=== PATIENT | female | born 1980 | race Caucasian/White ===

== ENCOUNTER 2016-03-09 11:26 | Emergency (ER) | payer OTHER ==
[~2016-03-09 11:26] MED LIST: ABILIFY5 MG PO; ACETAMINOPHEN500 MG PO; ALBUTEROL HFA60 DOSE IN; COLACE100 MG PO; CREON6000 UNIT PO; DOCQLACE100 MG PO; FLAGYL500 MG PO; HYDROXYZINE HCL25 MG PO; HYOSCYAMINE0.125 M2 PO; LEVAQUIN500 MG PO; MELATONIN1 M1 PO; MIRALAX EQUIVAL17 GM PO; NAPROSYN250 MG PO; NICODERM C14 MG/24 H TOP; ONDANSETRON ODT4 MG PO; OXYCODONE/ACETA1 TA1 PO; PERCOCET1 TA1 PO; PRILOSEC20 MG PO; VICODIN EQUIVAL1 TAB PO; ZOFRAN ODT4 MG PO
--- NOTE | 2016-03-09 16:13 | DIAGNOSTIC IMAGING REPORT ---
PROCEDURE: CT ABD/PELVIS WITH CONTRAST CLINICAL INDICATION: Epigastric pain with ERCP 1 week ago and stent placement. Initial encounter. TECHNIQUE: 125 ml of Isovue 300 were injected intravenously and axial images were obtained of the entire abdomen and pelvis with sagittal and coronal reformations. COMPARISON: CT abdomen/pelvis 04/19/2015 FINDINGS: ABDOMEN: Lung base are clear. Heart size is normal. Cholecystectomy with interval placement of a pancreatic stent. Normal pancreas. Stable mild extra and intrahepatic ductal dilation. Liver, spleen, kidneys and abdominal aorta are normal. There is wall thickening of the ascending, descending and sigmoid colon which may be due to decompression versus colitis. No adjacent inflammatory changes. PELVIS: Normal appendix. Occasional sigmoid diverticula. IUD in satisfactory position. Normal bladder. There is no pelvic mass, free fluid or inflammatory changes. No suspicious osseous lesions IMPRESSION: 1. Wall thickening of the ascending, transverse and sigmoid colon which may represent spasm versus colitis. 2. Cholecystectomy with pancreatic stent. No evidence of pancreatitis 3. Occasional sigmoid diverticula 4. IUD in place 5. Results discussed with Dr. Stern All CT scans at this facility use dose modulation, iterative reconstruction, and/or weight-based dosing when appropriate to reduce radiation dose to as low as reasonably achievable.
--- NOTE | 2016-03-09 16:47 | ED ORDER SUMMARY ---
..... Patient: URIEL MITCHELL OrderSheet [facility] VisitID: [id number] [place] [address] 36y, F Registration Date/Time: 03/09/2016 ORDER SHEET Weight: 62.3 kg (stated) Allergies: Indomethacin, Reglan, Shellfish-derived Products GENERAL ORDERS: CBC w Diff Urgent (12:29 03/09/2016 Yamileth Aponte) (Ack 12:35 [facility] ER Tech1) (14:32 NHouse ER Tech1) CMP Urgent (12:29 03/09/2016 Yamileth Aponte) (Ack 12:35 NHouse ER Tech1) (14:32 NHouse ER Tech1) UA-Culture if indicated Urgent (12:29 03/09/2016 Yamileth Aponte) (Ack 12:35 [employer] ER Tech1) (14:31 GMarshall R.N.) Urine Urgent (12:29 03/09/2016 Yamileth Aponte) (Ack 12:35 [employer] ER Tech1) (14:31 GMarshall R.N.) Amylase Urgent (12:29 03/09/2016 Yamileth Aponte) (Ack 12:35 [employer] ER Tech1) (14:32 NHouse ER Tech1) Lipase Urgent (12:29 03/09/2016 Yamileth Aponte) (Ack 12:35 [employer] ER Tech1) (14:32 NHouse ER Tech1) Consult - GI (Dr. Santiago Winter) (13:08 03/09/2016 [employer] ER Tech1 verbal order read back to Yamileth Aponte) (13:09 [facility] ER Tech1) CT Abd/Pel w Cont (No) (8/0.8) Urgent (14:16 03/09/2016 Yamileth Aponte) (Ack 14:21 DEouse ER Tech1) (15:59 MCampbell) MEDICATION ORDERS: Promethazine IV 25 mg (HIGH ALERT MEDICATION, NOW) (12:28 03/09/2016 Yamileth Aponte) (13:03 HOShaughnessy R.N.) IV FLUIDS: IV NS : initial bolus none -, then 1000 mL/hr for X1 (NOW) (12:27 03/09/2016 Yamileth Aponte) (13:03 Sabino R.N.) Demerol IV 25 mg (HIGH ALERT MEDICATION, NOW) (12:29 03/09/2016 Yamileth Aponte) (13:14 HOSharoberto R.N.) Demerol IV 25 mg (HIGH ALERT MEDICATION, NOW) (14:16 03/09/2016 Yamileth Aponte) (14:43 Sabnio R.N.) Zofran IV 8 mg (NOW) (14:17 03/09/2016 Yamileth Aponte) (14:28 Sabino R.N.) ORDER SHEET NOTES: [Electronically signed by Jd Harris R.N. (17:04 03/09/2016)] [Electronically signed by Elías Stern Dr. (22:24 03/10/2016)] [Electronically locked/signed by Jd Harris R.N. (17:04 03/09/2016)]
--- NOTE | 2016-03-09 16:47 | ED CLINICAL REPORT ---
Clinical Report - Physicians/Mid Levels [facility] [address] [place] [address] 03/09/2016 11:28 Patient: URIEL MITCHELL Time Seen: 12:18; initial patient contact. Arrived- By private vehicle. Historian- patient. HISTORY OF PRESENT ILLNESS Chief Complaint: ABDOMINAL PAIN. At its maximum, severity described as moderate. When seen in the E.D., severity described as moderate. Modifying factors. Not worsened by anything. Not relieved by anything. It is described as "pain". No radiation. It is described as located in the right upper quadrant and epigastric area. This started about 1 week ago; Pain since ERCP last week and is still present. The patient has had nausea and vomiting. No loss of appetite or diarrhea. Similar symptoms previously: Many times. Recent medical care: The patient was seen recently in a clinic. REVIEW OF SYSTEMS No constipation, fever or chills. All systems otherwise negative, except as recorded above. PAST HISTORY Recent Travel. Leukocytosis. Abscess. Perirectal Abscess. Allergic Reaction. Constipation. Diverticulitis. Sick Contact. Abnormal Test. Abdominal Pain. Tendonitis. Pancreatitis. Gallstone(s). C-Diff. Insomnia. Dental Pain. Colitis. Vomiting. Diarrhea. Influenza. Pharyngitis. Asthma. Anxiety Reaction. Immunizations. --11:53 Jimena Galarza, R.N. Irritable Bowel Syndrome [RuleOut]. Substance Abuse [RuleOut]. Gastroenteritis [RuleOut]. --11:53 Jimena Galarza, R.N. ADDITIONAL SURGERIES: Breast Biopsy. Cholecystectomy. Colostomy. Endoscopy. Lump removed from left breast. Medications: Ondansetron Oral. Albuterol Sulfate HFA Inhalation. Melatonin. Omeprazole Oral. Docusate Calcium Oral. ClonazePAM Oral. Oxycodone-Acetaminophen Oral. Hycosamine. Allergies: Indomethacin. Definite Moderate(nausea, vomiting) Reglan. Definite Moderate(hives) (and shaking) Shellfish-derived Products. SOCIAL HISTORY Smoker - current status unknown. History of drug use: marijuana. No alcohol use. ADDITIONAL NOTES The nursing notes have been reviewed with agreement regarding the chief complaint, PMH and patient medications and allergies. PHYSICAL EXAM Vital Signs: 03/09/2016 11:55 BP: 106/63. HR: 88. RR: 18. O2 saturation: 99%. Temp: 97.5 F. Pain level now: 08/06. Have been reviewed as normal. Appearance: Alert. Oriented X3. No acute distress. Eyes: No scleral icterus or pale conjunctivae. ENT: Pharynx normal. CVS: Normal heart rate and rhythm. Heart sounds normal. Respiratory: No respiratory distress. Breath sounds normal. Abdomen: Soft. Moderate tenderness in the upper abdomen. No guarding, rebound tenderness or Arias's sign present. Bowel sounds normal. No organomegaly. No mass. Skin: Skin warm and dry. Normal skin color. No rash. Normal skin turgor. Extremities: No lower extremity edema. Neuro: Oriented X 3. LABS, X-RAYS, AND EKG CT Abdomen - Pelvis: 1. Wall thickening of the ascending, transverse and sigmoid colon which may represent spasm versus colitis. 2. Cholecystectomy with pancreatic stent. No evidence of pancreatitis 3. Occasional sigmoid diverticula 4. IUD in [address]. Abdomen - pelvic CT performed with IV contrast. The study was interpreted by the radiologist and discussed with the radiologist. Laboratory Tests: UA-Culture if indicated: (LILIA: 03/09/2016 13:45) ( [facility] [place] 03/09/2016 14:07) IP Test Result Flag Units (Reference) URINE COLOR YELLOW URINE APPEARANCE CLEAR URINE GLUCOSE NEGATIVE (NEGATIVE) URINE BILIRUBIN NEGATIVE (NEGATIVE) URINE KETONE NEGATIVE (NEGATIVE) URINE SPECIFIC GRAVITY 1.020 (1.010-1.030) URINE PH 6.5 (5.0-8.0) URINE PROTEIN NEGATIVE (NEGATIVE) URINE UROBILINOGEN 0.2 EU/dL (0.2-1.0) URINE NITRITE NEGATIVE (NEGATIVE) URINE BLOOD NEGATIVE (NEGATIVE) URINE LEUK ESTERASE NEGATIVE (NEGATIVE) Urine: (LILIA: 03/09/2016 13:45) ( [facility] [place] 03/09/2016 14:07) Final results Test Result Flag Units (Reference) URINE NEGATIVE CBC w Diff: (LILIA: 03/09/2016 12:52) ( [facility] [place] 03/09/2016 13:22) Final results Test Result Flag Units (Reference) WHITE BLOOD COUNT 6.8 K/uL (4.5-11.5) RED BLOOD COUNT 4.88 M/uL (4.00-5.20) HEMOGLOBIN 14.3 gm/dL (12.0-16.0) HEMATOCRIT 43.7 % (36.0-46.0) MEAN CELL VOLUME 90 fL (80-100) MEAN CORPUSCULAR HGB 29 pg (26-34) MEAN CORPUSCULAR HGB CONC 33 g/dL (31-37) RED CELL DISTRIBUTION WIDTH 12.5 % (11.6-14.8) PLATELET COUNT 195 K/uL (150-400) LYMPH % 27.8 % (25-40) MONO % 2.5 L % (3-14) GRANULOCYTE % 69.7 (53-90) CMP: (LILIA: 03/09/2016 12:52) ( MsgRcvd 03/09/2016 13:29) Final results Test Result Flag Units (Reference) GLUCOSE 84 mg/dL (70-110) BUN 8 mg/dL (7-18) CREATININE 0.8 mg/dL (0.6-1.3) Estimated GFR >60 mL/min Estimated GFR- >60 mL/min Note: Persistent reduction over 3 months in eGFR<60 mL/min/1.73 m2 defines CKD. Patients with eGFR values>=60 mL/min/1.73 m2 may also have CKD if evidence ofpersistent proteinuria. Additional information may be foundat www.kidney.org. SODIUM 140 mmol/L (136-145) POTASSIUM 4.2 mmol/L (3.5-5.1) CHLORIDE 106 mmol/L (98-107) CARBON DIOXIDE 28 mmol/L (21-32) CALCIUM 8.9 mg/dL (8.5-10.1) TOTAL PROTEIN 7.2 g/dL (6.4-8.2) ALBUMIN 4.0 g/dL (3.3-5.0) BILIRUBIN, TOTAL 0.6 mg/dL (0.0-1.0) ALKALINE PHOSPHATASE 51 U/L (46-116) AST (SGOT) 15 U/L (15-37) ALT (SGPT) 23 U/L (12-78) LIPASE 118 U/L (73-393) AMYLASE 32 U/L (25-115) . PROGRESS AND PROCEDURES Course of Care: 16:47 03/09/16. Went in room to discuss results, pt sound asleep. When awake, no signs of pain or distress. 03/09/2016 14:44 BP: 99/53. HR: 71. RR: 16. O2 saturation: 98%. Pain level now: 06/06. Vital Signs: have been reviewed. Hypotensive. Heart rate normal. Respiratory rate normal. Oxygen saturation normal. Discussed case with patient's primary care provider, (call returned 13:17 Dr. Winter recommended labs and CT w/ contrast). Disposition: Discharged home in good and improved condition. Condition: good. CLINICAL IMPRESSION Chronic epigastric abdominal pain of unknown cause. INSTRUCTIONS Your Current Medications: CONTINUE TAKING THE FOLLOWING MEDICATIONS: Albuterol Sulfate HFA Inhalation. ClonazePAM Oral. Docusate Calcium Oral. Hycosamine*. Melatonin*. Omeprazole Oral. Ondansetron Oral. Oxycodone-Acetaminophen Oral. Follow-up: Follow up with your doctor in about two days. Call for an appointment. Screening today revealed the patient's blood pressure to be in the normal range. (Electronically signed by Elías Stern Dr. 03/10/2016 22:24)
--- NOTE | 2016-03-09 16:47 | ED NURSING NOTES ---
Clinical Report - Nurses [facility] [place] [address] 03/09/2016 11:28 Patient: URIEL MITCHELL TRIAGE Triage time 11:49. Acuity: LEVEL 3. Chief Complaint: ABDOMINAL PAIN and (pt had ERCP with stent, done 1 week ago, Dr Ingram sent pt here to ED for labs and x rays). Alert. --11:54 Jimena Galarza R.N. 11:55 03/09/16. BP: 106/63. HR: 88. RR: 18. O2 saturation: 99%. Temp: 97.5 F. Pain level now: 08/06. --11:55 Jiemna Galarza R.N. Weight: 62.3 kg stated. Height/Length: 68 inches Per Patient. BMI: 20.9. --11:48 Jimena Galarza R.Chloé. Medications Hycosamine. --11:47 Jimena Galarza R.Chloé. ClonazePAM Oral. Oxycodone-Acetaminophen Oral. --11:47 Jimena Galarza R.N. Docusate Calcium Oral. --11:47 Jimena Galarza R.N. Omeprazole Oral. --11:48 Jimena Galarza R.N. Melatonin. --11:48 Jimena Galarza R.N. Albuterol Sulfate HFA Inhalation. --11:48 Jimena Galarza R.N. Ondansetron Oral. --11:48 Jimena Galarza R.N. Allergies Indomethacin. Definite Moderate(nausea, vomiting) Reglan. Definite Moderate(hives) (and shaking) Shellfish-derived Products. --11:49 Jimena Galarza R.N. History Arrived by private vehicle, and accompanied by daughter. Primary physician (Monique Ingram for stent). Historian not patient. Onset. (1 week ago). SURGERY HX: ( ERCP). SOCIAL HX: Smoker- current status unknown. History of drug use: marijuana. No alcohol use. The patient was not exposed to MRSA. SELF HARM ASSESSMENT: A self harm assessment was performed. The patient answered "no" to the question "Do you have thoughts of harming or killing yourself?". FALL RISK ASSESSMENT: Fall risk assessment completed. No fall risk identified. NUTRITIONAL RISK ASSESSMENT: The nutritional risk assessment revealed no deficiencies. FUNCTIONAL ASSESSMENT: Functional assessment: no impairments noted. --11:54 Jimena Galarza R.N. PROBLEMS: Recent Travel. Leukocytosis. Abscess. Perirectal Abscess. Allergic Reaction. Constipation. Diverticulitis. Sick Contact. Abnormal Test. Abdominal Pain. Tendonitis. Pancreatitis. Gallstone(s). C-Diff. Insomnia. Dental Pain. Colitis. Vomiting. Diarrhea. Influenza. Pharyngitis. Asthma. Anxiety Reaction. Immunizations. --11:53 Jimena Galarza R.N. Irritable Bowel Syndrome [RuleOut]. Substance Abuse [RuleOut]. Gastroenteritis [RuleOut]. --11:53 Jimena Galarza R.N. ADDITIONAL SURGERIES: Breast Biopsy. Cholecystectomy. Colostomy. Endoscopy. Lump removed from left breast. --11:53 Jimena Galarza R.N. Interventions ID band on patient. To room. --11:54 Jimena Galarza R.N. PHYSICAL ASSESSMENT 11:54 03/09/16. GENERAL / NEURO / PSYCH: Alert. Oriented X 4. RESPIRATORY: Respirations not labored. --11:54 Jimena Galarza R.N. NURSING PROGRESS NOTES 11:55 03/09/16. Patient gowned. Head of bed elevated. Patient identifiers checked. Call light placed in reach. Bed placed in lowest position. Patient ready for evaluation- chart flagged. --11:55 Jimena Galarza R.N. ( Pt unable to eat solid foods, vomits when tries to eat, so stays on liquids only). --11:56 Jimena Galarza R.N. Care transferred and report given (to Jd). --12:15 Jimena Galarza R.N. 13:02 03/09/2016 Site #1 started via IV in the left forearm with an 20g angiocath; two attempts. Blood drawn: rainbow set. Labeled in the presence of the patient and sent to the lab. Saline lock flushed with 10 mL saline. --13:02 Jd Harris R.N. 13:03 03/09/2016 Started IV Fluids IV NS (Saline); bolus of 1000 mL wide open via site #1. Allergies verified and confirmed 5 rights. IV patency established. IV site checked: no pain, redness, or swelling. IV flushed thoroughly pre- and post-medication administration. --13:03 Jd Harris R.N. 13:03 03/09/2016 Started 25 mg of PROMETHAZINE IVPB in bag #1 100 mL; over 20 minute(s) via site #1; Allergies verified, confirmed 5 rights and sedative warning given to the patient. IV patency established. IV site checked: no pain, redness, or swelling. IV flushed thoroughly pre- and post-medication administration. --13:03 Jd Harris R.N. 13:13 03/09/16. BP: 107/60. HR: 68. RR: 16. O2 saturation: 99%. --13:13 Jd Harris R.N. Reassessment after fluids administered and medication administered. She is calm and resting quietly. Overall patient status is improved- she states feels better. --13:13 Jd Harris R.N. 13:14 03/09/2016 Demerol (Meperidine HCl) IVP 25 mg given over 2 minute(s) via site #1. Allergies verified and confirmed 5 rights. IV patency established. IV site checked: no pain, redness, or swelling. IV flushed thoroughly pre- and post-medication administration. IVP given by RN. --13:14 Jd Harris R.N. 14:28 03/09/2016 Zofran (Ondansetron HCl) IVP 8 mg given over 2 minute(s) via site #1. Allergies verified and confirmed 5 rights. IV patency established. IV site checked: no pain, redness, or swelling. IV flushed thoroughly pre- and post-medication administration. IVP given by RN. --14:28 Jd Harris R.N. <<STRICKEN ENTRY-- 14:42 03/09/2016 Zofran (Ondansetron HCl) IVP 8 mg given over 2 minute(s) via site #1. Allergies verified and confirmed 5 rights. IV patency established. IV site checked: no pain, redness, or swelling. IV flushed thoroughly pre- and post-medication administration. IVP given by RN. --14:42 Jd Harris R.N. --END STRIKE>> Correction. --17:03 Jd Harris R.N. 14:43 03/09/2016 Demerol (Meperidine HCl) IVP 25 mg given over 2 minute(s) via site #1. Allergies verified and confirmed 5 rights. IV patency established. IV site checked: no pain, redness, or swelling. IV flushed thoroughly pre- and post-medication administration. IVP given by RN. --14:43 Jd Harris R.N. 14:44 03/09/16. BP: 99/53. HR: 71. RR: 16. O2 saturation: 98%. Pain level now: 06/06. --14:44 Jd Harris R.N. The patient is calm. Overall patient status is improved- she states feels better. GI / : The patient reports abdominal pain. --14:44 Jd Harris R.N. 14:42 03/09/2016 Zofran (Ondansetron HCl) IVP 8 mg given over 2 minute(s) via site #1. (NOT ADMINISTERED). --17:03 Jd Harris R.N. DISPOSITION / DISCHARGE Condition at departure: improved. The goals identified in the patient's plan of care were met. No learning barriers present. Discharge instructions provided and reviewed with the patient. Reviewed medication(s) side effects, precautions, dosing and course information. Prescription(s) given to the patient. The patient was discharged home and accompanied by family. She left the Emergency Department ambulatory and via private vehicle. Family member driving. FALL RISK ASSESSMENT: Fall risk assessment completed. No fall risk identified. --17:02 Jd Harris R.N. 17:01 03/09/16. BP: 100/52 taken on the right arm, via an automated monitor, while lying. HR: 67. RR: 16. O2 saturation: 100%. Temp: 98.2 F (oral). Pain level now: 0/10. --17:02 Jd Harris R.N. Departure time: 1702 PM. --17:02 Jd Harris R.N. 17:02 03/09/2016 IV Fluids IV NS Discontinued: bag #1 completed upon discharge. Total amount infused: 1000 mL. IV patency established. IV site checked: no pain, redness, or swelling. IV flushed thoroughly. --17:02 Jd Harris R.N. Locked/Released at 03/09/2016 17:04 by Jd Harris R.N.
--- NOTE | 2016-03-09 16:47 | ED ORDER SUMMARY ---
..... Patient: URIEL MITCHELL OrderSheet [facility] VisitID: [id number] [place] [address] 36y, F Registration Date/Time: 03/09/2016 ORDER SHEET Weight: 62.3 kg (stated) Allergies: Indomethacin, Reglan, Shellfish-derived Products GENERAL ORDERS: CBC w Diff Urgent (12:29 03/09/2016 Yamileth Aponte) (Ack 12:35 [employer] ER Tech1) (14:32 [facility]ouse ER Tech1) CMP Urgent (12:29 03/09/2016 Yamileth Aponte) (Ack 12:35 [facility] ER Tech1) (14:32 NHouse ER Tech1) UA-Culture if indicated Urgent (12:29 03/09/2016 Yamileth Aponte) (Ack 12:35 [employer] ER Tech1) (14:31 GMarshall R.N.) Urine Urgent (12:29 03/09/2016 Yamileth Aponte) (Ack 12:35 [employer] ER Tech1) (14:31 GMarshall R.N.) Amylase Urgent (12:29 03/09/2016 Yamileth Aponte) (Ack 12:35 [employer] ER Tech1) (14:32 NH[facility] ER Tech1) Lipase Urgent (12:29 03/09/2016 Yamileth Aponte) (Ack 12:35 [employer] ER Tech1) (14:32 NHouse ER Tech1) Consult - GI (Dr. Santiago Winter) (13:08 03/09/2016 [employer] ER Tech1 verbal order read back to Yamileth Aponte) (13:09 [employer] ER Tech1) CT Abd/Pel w Cont (No) (8/0.8) Urgent (14:16 03/09/2016 Yamileth Aponte) (Ack 14:21 [facility] ER Tech1) (15:59 MCampbell) MEDICATION ORDERS: Promethazine IV 25 mg (HIGH ALERT MEDICATION, NOW) (12:28 03/09/2016 Yamileth Aponte) (13:03 HOShaughnessy R.N.) IV FLUIDS: IV NS : initial bolus none -, then 1000 mL/hr for X1 (NOW) (12:27 03/09/2016 Yamileth Aponte) (13:03 Sabino R.N.) Demerol IV 25 mg (HIGH ALERT MEDICATION, NOW) (12:29 03/09/2016 Yamileth Aponte) (13:14 HOSharoberto R.N.) Demerol IV 25 mg (HIGH ALERT MEDICATION, NOW) (14:16 03/09/2016 Yamileth Aponte) (14:43 Sabino R.N.) Zofran IV 8 mg (NOW) (14:17 03/09/2016 Yamileth Aponte) (14:28 Sabino R.N.) ORDER SHEET NOTES: [Electronically signed by Jd Harris R.N. (17:04 03/09/2016)] [Electronically signed by Elías Stern Dr. (22:24 03/10/2016)] [Electronically locked/signed by Jd Harris R.N. (17:04 03/09/2016)]
--- NOTE | 2016-03-10 22:25 | ED MAR SUMMARY ---
..... Medication Administration Record [facility] [address] [place] [address] Patient: URIEL MITCHELL Visit ID: [id number] 36y, F Weight: 62.3 kg Height/Length: 68 in BMI: 20.9 ALLERGIES: Indomethacin, Reglan, Shellfish-derived Products Start 13:03 03/09/2016 Jd Harris R.N., Stop 17:02 03/09/2016 Jd Harris R.N. Medication Administered: IV NS (SALINE), Dose: IV Fluids, Bolus: 1000 mL wide open, Site: #1 left forearm. Medication Ordered: IV NS : initial bolus none -, then 1000 mL/hr for X1 (NOW). Start 13:03 03/09/2016 Jd Harris R.N. Medication Administered: PROMETHAZINE [IVPB], Dose: 25 mg IVPB over 20 minute(s), Dispensed: 100 mL bag, Site: #1 left forearm. Medication Ordered: Promethazine IV 25 mg (HIGH ALERT MEDICATION, NOW). Given 13:14 03/09/2016 Jd Harris R.N. Medication Administered: DEMEROL [IVP] (MEPERIDINE HCL), Dose: 25 mg IVP over 2 minute(s), Site: #1 left forearm. Medication Ordered: Demerol IV 25 mg (HIGH ALERT MEDICATION, NOW). Given 14:28 03/09/2016 Jd Harris R.N. Medication Administered: ZOFRAN [IVP] (ONDANSETRON HCL), Dose: 8 mg IVP over 2 minute(s), Site: #1 left forearm. Medication Ordered: Zofran IV 8 mg (NOW). Given 14:42 03/09/2016 Jd Harris R.N. Medication Administered: ZOFRAN [IVP] (ONDANSETRON HCL), Dose: 8 mg IVP over 2 minute(s), Site: #1 left forearm. Medication Ordered: Zofran IV 8 mg (NOW). Given 14:43 03/09/2016 Jd Harris R.N. Medication Administered: DEMEROL [IVP] (MEPERIDINE HCL), Dose: 25 mg IVP over 2 minute(s), Site: #1 left forearm. Medication Ordered: Demerol IV 25 mg (HIGH ALERT MEDICATION, NOW).
--- NOTE | 2016-03-10 22:25 | ED MAR SUMMARY ---
..... Medication Administration Record [facility] [address] [place] [address] Patient: URIEL MITCHELL Visit ID: [id number] 36y, F Weight: 62.3 kg Height/Length: 68 in BMI: 20.9 ALLERGIES: Indomethacin, Reglan, Shellfish-derived Products Start 13:03 03/09/2016 Jd Harris R.N., Stop 17:02 03/09/2016 Jd Harris R.N. Medication Administered: IV NS (SALINE), Dose: IV Fluids, Bolus: 1000 mL wide open, Site: #1 left forearm. Medication Ordered: IV NS : initial bolus none -, then 1000 mL/hr for X1 (NOW). Start 13:03 03/09/2016 Jd Harris R.N. Medication Administered: PROMETHAZINE [IVPB], Dose: 25 mg IVPB over 20 minute(s), Dispensed: 100 mL bag, Site: #1 left forearm. Medication Ordered: Promethazine IV 25 mg (HIGH ALERT MEDICATION, NOW). Given 13:14 03/09/2016 Jd Harris R.N. Medication Administered: DEMEROL [IVP] (MEPERIDINE HCL), Dose: 25 mg IVP over 2 minute(s), Site: #1 left forearm. Medication Ordered: Demerol IV 25 mg (HIGH ALERT MEDICATION, NOW). Given 14:28 03/09/2016 Jd Harris R.N. Medication Administered: ZOFRAN [IVP] (ONDANSETRON HCL), Dose: 8 mg IVP over 2 minute(s), Site: #1 left forearm. Medication Ordered: Zofran IV 8 mg (NOW). Given 14:42 03/09/2016 Jd Harris R.N. Medication Administered: ZOFRAN [IVP] (ONDANSETRON HCL), Dose: 8 mg IVP over 2 minute(s), Site: #1 left forearm. Medication Ordered: Zofran IV 8 mg (NOW). Given 14:43 03/09/2016 Jd Harris R.N. Medication Administered: DEMEROL [IVP] (MEPERIDINE HCL), Dose: 25 mg IVP over 2 minute(s), Site: #1 left forearm. Medication Ordered: Demerol IV 25 mg (HIGH ALERT MEDICATION, NOW).
--- NOTE | 2016-03-10 22:25 | ED MED RECONCILIATION SUMMARY ---
Patient: URIEL MITCHELL Medication Reconciliation Report [facility] VisitID: [id number] [address] [place] [address] 36y, F Registration Date/Time: 03/09/2016 Weight: 62.3 kg Height/Length: 68 in. BMI: 20.9 ALLERGIES: Indomethacin, Reglan, Shellfish-derived Products The patient's Home Medications are listed below: CONTINUE TAKING THE FOLLOWING MEDICATIONS: Albuterol Sulfate HFA Inhalation ClonazePAM Oral Docusate Calcium Oral Hycosamine Melatonin Omeprazole Oral Ondansetron Oral Oxycodone-Acetaminophen Oral The source(s) of the original Home Medication information: Not obtained. The following Medications were given to the patient in the Emergency Department: IV NS IV Fluids bolus 1000 mL wide open, administered: 03/09/2016 1:03:00 PM PROMETHAZINE [IVPB] IVPB bolus 0, then 25 mg, administered: 03/09/2016 1:03:00 PM Demerol [IVP] IVP 25 mg, administered: 03/09/2016 1:14:00 PM Zofran [IVP] IVP 8 mg, administered: 03/09/2016 2:28:00 PM Zofran [IVP] IVP 8 mg, administered: 03/09/2016 2:42:00 PM Demerol [IVP] IVP 25 mg, administered: 03/09/2016 2:43:00 PM The following Medications were prescribed to the patient: None.
--- NOTE | 2016-03-10 22:25 | ED DISCHARGE INSTRUCTIONS ---
Patient: URIEL MITCHELL General Instructions [facility] VisitID: [id number] [place] [address] 36y, F Registration Date/Time: 03/09/2016 Chronic epigastric abdominal pain of unknown cause. INSTRUCTIONS Your Current Medications: CONTINUE TAKING THE FOLLOWING MEDICATIONS: Albuterol Sulfate HFA Inhalation. ClonazePAM Oral. Docusate Calcium Oral. Hycosamine*. Melatonin*. Omeprazole Oral. Ondansetron Oral. Oxycodone-Acetaminophen Oral. Follow-up: Follow up with your doctor in about two days. Call for an appointment. Screening today revealed the patient's blood pressure to be in the normal range. ADDITIONAL INFORMATION Abdominal Pain, Unknown Cause (Female) The exact cause of your abdominal (stomach) pain is not certain. This does not mean that this is something to worry about, or the right tests were not done. Everyone likes to know the exact cause of the problem, but sometimes with abdominal pain, there is no clear-cut cause, and this could be a good thing. The good news is that your symptoms can be treated, and you will feel better. Your condition does not seem serious now; however, sometimes the signs of a serious problem may take more time to appear. For this reason,it is important for you to watch for any new symptoms, problems,or worsening of your condition. Over the next few days, the abdominal pain may come and go, or be continuous. Other common symptoms can include nausea and vomiting. Sometimes it can be difficult to tell if you feel nauseous, you may just feel bad and not associate that feeling with nausea. Constipation, diarrhea, and a fever may go along with the pain. The pain may continue even if treated correctly over the following days. Depending on how things go, sometimes the cause can become clear and may require further or different treatment. Additional evaluations, medications, or tests may be needed. Home care Your health care provider may prescribe medications for pain, symptoms, or an infection. Follow the health care provider's instructions for taking these medications. General care Rest until your next exam. No strenuous activities. Try to find positions that ease discomfort. A small pillow placed on the abdomen may help relieve pain. Something warm on your abdomen (such as a heating pad) may help, but be careful not to burn yourself. Diet Do not force yourself to eat, especially if having cramps, vomiting, or diarrhea. Water is important so you do not get dehydrated. Soup may also be good. Sports drinks may also help, especially if they are not too acidic. Make sure you don't drink sugary drinks as this can make things worse. Take liquids in small amounts. Do not guzzle them. Caffeine sometimes makes the pain and cramping worse. Avoid dairy products if you have vomiting or diarrhea. Don't eat large amounts at a time. Wait a few minutes between bites. Eat a diet low in fiber (called a low-residue diet). Foods allowed include refined breads, white rice, fruit and vegetable juices without pulp, tender meats. These foods will pass more easily through the intestine. Avoid whole-grain foods, whole fruits and vegetables, meats, seeds and nuts, fried or fatty foods, dairy, alcohol and spicy foods until your symptoms go away. Follow-up care Follow up with your health care provider as instructed, or if your pain does not begin to improve in the next 24 hours. When to seek medical care Seek prompt medical care if any of the following occur: Pain gets worse or moves to the right lower abdomen New or worsening vomiting or diarrhea Swelling of the abdomen Unable to pass stool for more than three days Fever of 100.4F (38C) or higher, or as directed by your healthcare provider. Blood in vomit or bowel movements (dark red or black color) Jaundice (yellow color of eyes and skin) Weakness, dizziness Chest, arm, back, neck or jaw pain Unexpected vaginal bleeding or missed period Call 911 Call emergency services if any of the following occur: Trouble breathing Confusion Fainting or loss of consciousness Rapid heart rate Seizure You have been given the following additional information: Abdominal Pain, Unknown Cause, (Female) (Electronically signed by Elías Stern Dr. 03/10/2016 22:24)
--- NOTE | 2016-03-10 22:25 | ED MED RECONCILIATION SUMMARY ---
Patient: URIEL MITCHELL Medication Reconciliation Report Merged With [facility] VisitID: [id number] [address] [place] [address] 36y, F Registration Date/Time: 03/09/2016 Weight: 62.3 kg Height/Length: 68 in. BMI: 20.9 ALLERGIES: Indomethacin, Reglan, Shellfish-derived Products The patient's Home Medications are listed below: CONTINUE TAKING THE FOLLOWING MEDICATIONS: Albuterol Sulfate HFA Inhalation ClonazePAM Oral Docusate Calcium Oral Hycosamine Melatonin Omeprazole Oral Ondansetron Oral Oxycodone-Acetaminophen Oral The source(s) of the original Home Medication information: Not obtained. The following Medications were given to the patient in the Emergency Department: IV NS IV Fluids bolus 1000 mL wide open, administered: 03/09/2016 1:03:00 PM PROMETHAZINE [IVPB] IVPB bolus 0, then 25 mg, administered: 03/09/2016 1:03:00 PM Demerol [IVP] IVP 25 mg, administered: 03/09/2016 1:14:00 PM Zofran [IVP] IVP 8 mg, administered: 03/09/2016 2:28:00 PM Zofran [IVP] IVP 8 mg, administered: 03/09/2016 2:42:00 PM Demerol [IVP] IVP 25 mg, administered: 03/09/2016 2:43:00 PM The following Medications were prescribed to the patient: None.
== END 2016-03-09 17:03 | disposition home or self-care (01) ==
LOC: ED SRH 11:26
DX: R10.13 Epigastric pain (principal); G89.29 Other chronic pain; J45.909 Unspecified asthma, uncomplicated; Z79.52 Long term (current) use of systemic steroids; Z79.899 Other long term (current) drug therapy; Z88.6 Allergy status to analgesic agent; Z91.013 Allergy to seafood; Z88.8 Allergy status to other drugs, medicaments and biological substances
CPT/HCPCS: 90004; 90100; 92235; 92530; 93070; 95059

== ENCOUNTER 2016-06-13 12:58 | Outpatient (CLI) | payer OTHER ==
--- NOTE | 2016-06-13 14:16 | DIAGNOSTIC IMAGING REPORT ---
PROCEDURE: MG BILATERAL DIAGNOSTIC W/CAD INDICATION: Palpable area upper outer left breast. History of benign left lumpectomy. Baseline mammogram. No family history. TECHNIQUE: CC and MLO digital views of each breast with true-lateral digital view of the left breast. In addition, spot compression CC and MLO views were obtained of the upper outer left breast (region of clinical concern). Finally, high-resolution left breast ultrasound was performed (18 mHz) comparison images of the right breast (over the horizon targeting supervisor CB). COMPARISON: None. FINDINGS: MAMMOGRAM: Computer-aided detection applied. Dense parenchymal pattern. No evidence of mass or suspicious calcification. BREAST ULTRASOUND: Heterogeneous breast parenchyma with similar findings in the right breast. There are two small cysts in the upper outer left breast (7 mm, 8 mm) which accounts for the palpable area. There is no evidence of underlying mass in this region. There are [id number] adjacent ovoid hypoechoic areas in the left axillary region compatible with a normal intramammary lymph (7 mm, 7 mm). IMPRESSION: 1. Negative mammogram. 2. There are two small 7 mm 8 mm cysts in the upper outer left breast which correlate with the palpable area. 3. There are [id number]-[id number] adjacent hypoechoic nodules in the left axilla consistent with normal intramammary lymph nodes. 4. While there is no evidence of underlying abnormality, early follow-up left mammogram and left breast ultrasound in 6 months is recommended to confirm stability. 5. Findings discussed with the patient. RESULT CODE: 3- Probably benign findings - initial short-interval follow-up suggested. A. A negative report should not delay biopsy if a dominant or clinically suspicious mass is present. 10-15% of cancers are not identified by x-ray. B. A negative report may reinforce clinical impression. C. Adenosis and dense breasts may obscure an underlying neoplasm. D. False positive reports average 6-10%. E.. A yearly screening mammogram is recommended. A reminder letter will be scheduled.
--- NOTE | 2016-06-13 14:16 | DIAGNOSTIC IMAGING REPORT ---
PROCEDURE: MG BILATERAL DIAGNOSTIC W/CAD INDICATION: Palpable area upper outer left breast. History of benign left lumpectomy. Baseline mammogram. No family history. TECHNIQUE: CC and MLO digital views of each breast with true-lateral digital view of the left breast. In addition, spot compression CC and MLO views were obtained of the upper outer left breast (region of clinical concern). Finally, high-resolution left breast ultrasound was performed (18 mHz) comparison images of the right breast (physician/ophthalmologist CB). COMPARISON: None. FINDINGS: MAMMOGRAM: Computer-aided detection applied. Dense parenchymal pattern. No evidence of mass or suspicious calcification. BREAST ULTRASOUND: Heterogeneous breast parenchyma with similar findings in the right breast. There are two small cysts in the upper outer left breast (7 mm, 8 mm) which accounts for the palpable area. There is no evidence of underlying mass in this region. There are [id number] adjacent ovoid hypoechoic areas in the left axillary region compatible with a normal intramammary lymph (7 mm, 7 mm). IMPRESSION: 1. Negative mammogram. 2. There are two small 7 mm 8 mm cysts in the upper outer left breast which correlate with the palpable area. 3. There are hdk-[id number]-lwwtn adjacent hypoechoic nodules in the left axilla consistent with normal intramammary lymph nodes. 4. While there is no evidence of underlying abnormality, early follow-up left mammogram and left breast ultrasound in 6 months is recommended to confirm stability. 5. Findings discussed with the patient. RESULT CODE: 3- Probably benign findings - initial short-interval follow-up suggested. A. A negative report should not delay biopsy if a dominant or clinically suspicious mass is present. 10-15% of cancers are not identified by x-ray. B. A negative report may reinforce clinical impression. C. Adenosis and dense breasts may obscure an underlying neoplasm. D. False positive reports average 6-10%. E.. A yearly screening mammogram is recommended. A reminder letter will be scheduled.
--- NOTE | 2016-06-13 14:16 | DIAGNOSTIC IMAGING REPORT ---
PROCEDURE: MG BILATERAL DIAGNOSTIC W/CAD INDICATION: Palpable area upper outer left breast. History of benign left lumpectomy. Baseline mammogram. No family history. TECHNIQUE: CC and MLO digital views of each breast with true-lateral digital view of the left breast. In addition, spot compression CC and MLO views were obtained of the upper outer left breast (region of clinical concern). Finally, high-resolution left breast ultrasound was performed (18 mHz) comparison images of the right breast (commercial real estate associate CB). COMPARISON: None. FINDINGS: MAMMOGRAM: Computer-aided detection applied. Dense parenchymal pattern. No evidence of mass or suspicious calcification. BREAST ULTRASOUND: Heterogeneous breast parenchyma with similar findings in the right breast. There are two small cysts in the upper outer left breast (7 mm, 8 mm) which accounts for the palpable area. There is no evidence of underlying mass in this region. There are jfh-[id number]-aiegf adjacent ovoid hypoechoic areas in the left axillary region compatible with a normal intramammary lymph (7 mm, 7 mm). IMPRESSION: 1. Negative mammogram. 2. There are two small 7 mm 8 mm cysts in the upper outer left breast which correlate with the palpable area. 3. There are srv-nc-[id number] adjacent hypoechoic nodules in the left axilla consistent with normal intramammary lymph nodes. 4. While there is no evidence of underlying abnormality, early follow-up left mammogram and left breast ultrasound in 6 months is recommended to confirm stability. 5. Findings discussed with the patient. RESULT CODE: 3- Probably benign findings - initial short-interval follow-up suggested. A. A negative report should not delay biopsy if a dominant or clinically suspicious mass is present. 10-15% of cancers are not identified by x-ray. B. A negative report may reinforce clinical impression. C. Adenosis and dense breasts may obscure an underlying neoplasm. D. False positive reports average 6-10%. E.. A yearly screening mammogram is recommended. A reminder letter will be scheduled.
--- NOTE | 2016-06-13 14:16 | DIAGNOSTIC IMAGING REPORT ---
PROCEDURE: MG BILATERAL DIAGNOSTIC W/CAD INDICATION: Palpable area upper outer left breast. History of benign left lumpectomy. Baseline mammogram. No family history. TECHNIQUE: CC and MLO digital views of each breast with true-lateral digital view of the left breast. In addition, spot compression CC and MLO views were obtained of the upper outer left breast (region of clinical concern). Finally, high-resolution left breast ultrasound was performed (18 mHz) comparison images of the right breast (family sociologist CB). COMPARISON: None. FINDINGS: MAMMOGRAM: Computer-aided detection applied. Dense parenchymal pattern. No evidence of mass or suspicious calcification. BREAST ULTRASOUND: Heterogeneous breast parenchyma with similar findings in the right breast. There are two small cysts in the upper outer left breast (7 mm, 8 mm) which accounts for the palpable area. There is no evidence of underlying mass in this region. There are [id number]-zd-yufsw adjacent ovoid hypoechoic areas in the left axillary region compatible with a normal intramammary lymph (7 mm, 7 mm). IMPRESSION: 1. Negative mammogram. 2. There are two small 7 mm 8 mm cysts in the upper outer left breast which correlate with the palpable area. 3. There are ent-pt-[id number] adjacent hypoechoic nodules in the left axilla consistent with normal intramammary lymph nodes. 4. While there is no evidence of underlying abnormality, early follow-up left mammogram and left breast ultrasound in 6 months is recommended to confirm stability. 5. Findings discussed with the patient. RESULT CODE: 3- Probably benign findings - initial short-interval follow-up suggested. A. A negative report should not delay biopsy if a dominant or clinically suspicious mass is present. 10-15% of cancers are not identified by x-ray. B. A negative report may reinforce clinical impression. C. Adenosis and dense breasts may obscure an underlying neoplasm. D. False positive reports average 6-10%. E.. A yearly screening mammogram is recommended. A reminder letter will be scheduled.
== END 2016-06-13 23:00 ==
LOC: MAM SRH 12:58
DX: N63 Unspecified lump in breast (principal)